=== PATIENT | male | born 1965 | race Caucasian/White ===

== ENCOUNTER 2025-01-25 12:13 | Outpatient (CLI) | payer BC, SELFPAY | END 2025-01-25 12:14 | disposition home or self-care (01) | LOC: AMB 01-29 18:32 | PROVIDERS: PCP Family Medicine; Visit Provider Emergency Medicine | DX: S09.93XA Unspecified injury of face, initial encounter (principal); W00.0XXA Fall on same level due to ice and snow, initial encounter; Y92.007 Garden or yard of unspecified non-institutional (private) residence as the place of occurrence of the external cause | CPT/HCPCS: A0998 ==

== ENCOUNTER 2025-01-25 14:01 | Emergency (ER) | payer BC, SELFPAY ==
[2025-01-25] VITALS (18 sets, daily range): BP systolic 123–139; BP diastolic 82–92; PULSE 77–92; RESP 16–20; TEMP 35.7; O2SAT 94–99; BMI 27.3
--- OUTSIDE RECORDS SUMMARY | 2025-01-25 14:03 | XMS_ITS | Clinical Summary ---
Author Organization [facility] Address [address] [place] [address] Care Team Providers Care Snuff Grinder Name Role Phone Eve Cervantes MD Primary Care Provider Swapnil Ruiz MD Unavailable Sarahi Shaver NP Unavailable [phone] Allergies Active Allergy Reactions Criticality Noted Date Comments Amoxicillin Hives 06/28/2008 Animal Dander Other - Describe In Comment Field 10/06/2016 itchy eyes, stuffy nose-Dog hair Cat hair- stuffy nose, itchy, swollen eyes Penicillins Hives 05/25/2012 Medications multivitamin (MVI) tablet Take 1 tablet by mouth once daily. 0 0 Active aspirin enteric coated 81 mg tabletIndications :HTN (hypertension) Take one twice weekly 0 4 Active triamcinolone (ARISTOCORT; KENALOG) 0.1 % cream 3 Active tacrolimus (PROTOPIC) 0.1 % ointment 4 Active icosapent ethyL (VASCEPA) 1 gram capsuleIndication s:Hypertriglyceri demia Take 2 g by mouth two times daily with meals. 400 Capsule 3 4 Active hydroxychloroquin e (PLAQUENIL) 200 mg tablet Take 1 Tablet (200 mg) by mouth two times daily. 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 Active furosemide (Lasix) 40 mg tabletIndications :Fluid retention Take 1 Tablet (40 mg) by mouth once daily in the morning. 90 Tablet 3 5 Active potassium chloride (KLOR-CON M20) 20 mEq extended-release tablet (part/cryst)Indic ations:Hypokalemi a Take 1 Tablet (20 mEq) by mouth two times daily with meals. 90 Tablet 1 5 Active carvediloL (COREG) 6.25 mg tabletIndications :Essential hypertension Take 2 Tablets (12.5 mg) by mouth two times daily with meals. 180 Tablet 1 5 Active amLODIPine (NORVASC) 5 mg tabletIndications :Hypertension Take 0.5 Tablets (2.5 mg) by mouth once daily. 90 Tablet 3 5 Active lisinopriL 20 mg tabletIndications :Essential hypertension Take 2 Tablets (40 mg) by mouth once daily. 100 Tablet 3 5 01/02/20 Discontinu ed(*Med complete/R egimen complete/L evel of care change) carvediloL (COREG) 6.25 mg tabletIndications :Essential hypertension Take 1 Tablet (6.25 mg) by mouth two times daily with meals. 180 Tablet 1 5 01/12/20 25 Discontinu ed(*Medica tion adjustment ) Active Problems Problem Noted Date Diagnosed Date Kimball's esophagus 08/15/2024 Overview (08/15/2024): EGD 07/2024 Kimball's, repeat EGD in 3 years Systemic lupus erythematosus , unspecified SLE type, unspecified organ involvement status 08/10/2024 Serrated polyp of colon 11/28/2020 Overview (11/28/2020): Colonoscopy 10/2020 SSA, repeat in 5 years with propofol Discoid lupus erythematosus 09/04/2016 Overview (12/01/2016): Per biopsy July 2016 Basal cell carcinoma 10/25/2012 Essential hypertension 09/06/2009 Hyperlipidemia 09/06/2009 Tobacco use disorder 09/06/2009 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 06/29/2008 Overview (11/28/2020): EGD 05/2008 Kimball's, repeat EGD in 2 years EGD 08/2010 Kimball's, repeat EGD in 3 years EGD 08/2013 Kimball's, repeat EGD in 3 years EGD 01/2017 Kimball's, repeat EGD in 3 years EGD 10/2020 Kimball's, repeat EGD in 3 years with propofol Resolved Problems Problem Noted Date Diagnosed Date Resolved Date Lupus 04/27/2022 04/16/2023 Discoid lupus erythematosus 09/04/2016 06/07/2018 Overview (09/04/2016): Per biopsy July 2016 Encounters Date Type Department Care Team Description 01/19/2025 Nurse Triage [facility] [id number] [place] [id number] Sarahi Shaver NP High Blood Pressure 01/19/2025 Telephone [facility] [id number] [place] [address] Sarahi Shaver NP Questions (Blood Pressure and medications) 01/17/[address] [address] Eve Cervantes MD Error-please disregard 01/11/2025 Telephone [facility] [id number] [place] [address] 387[address] Sarahi hSaver NP Results 01/11/2025 Orders Only [facility] [id number] [place] [address] 61069 Sarahi Shaver NP <No scans attached> 01/10/2025 Orders Only [facility] [address] [place] [address] Eve Cervantes MD <No scans attached> 01/09/2025 Orders Only [facility] [id number] [place] [phone] Sarahi Shaver NP <No scans attached> 01/09/2025 Orders Only [facility] [id number] [place] [address] 29760 Sarahi Shaver NP <No scans attached> 01/08/2025 2:00 PM ENGINEHOUSE BRAKEMAN Orders Only [facility] [address] [place] [address] Lab, [place] Lab 01/08/2025 Travel 01/01/2025 2:00 PM ENGINEHOUSE BRAKEMAN Office Visit [facility] [id number] [place] [address] Sarahi Shaver NP Follow Up 01/01/2025 Travel 12/26/2024 Telephone [facility] [id number] [place] [address] Sarahi Shaver NP Results 12/25/2024 2:15 PM CDT Orders Only [facility] [address] [place] [address] Lab, [place] Lab 12/25/2024 Travel 11/30/2024 Telephone [facility] [id number] [place] [phone] Sarahi Shaver NP Results (RETURNING CALL ) 11/28/2024 Telephone [facility] [id number] [place] [address] Sarahi Shaver NP Results 11/27/2024 2:00 PM CDT Orders Only [facility] [address] [place] [address] Lab, [place] Lab 11/27/2024 Travel 11/16/2024 Orders Only [facility] [address] [place] [address] Eve Cervantes MD <No scans attached> 11/14/2024 Telephone [facility] [address] [place] [address] Sarahi Shaver NP Results 11/14/2024 Orders Only [facility] [id number] [place] [address] Sarahi Shaver NP <No scans attached> 11/13/2024 2:15 PM CDT Orders Only [facility] [address] [place] [address] Lab, [place] Lab 11/13/2024 Travel 11/09/[address] [address] Sarahi Shaver NP Follow Up (CEC, Please direct call back to [facility] Nephrology block inspector Pool./Nephrology Post Visit (10/24/24) RN Follow-up Call ) 11/05/2024 Refill [facility] [id number] [place] [address] Sarahi Shaver NP Refill Request (Furosemide) from Last 3 Months Immunizations Immunization Administration Dates Next Due COVID-19 VACCINE SPIKEVAX (M ODERNA 50MCG/0.5ML) 12YO+ PFS 04/14/2024,03/05/2023 COVID-19 vaccine (Pfizer-Bio NTech 30mcg/0.3mL) PF, MDV 02/14/2021 INFLUENZA, IIV3 PF (AGE >= 6 MO) 04/14/2024 Influenza A (H1N1), Inactivated 12/25/2008 Influenza RIV4 (Age 18+ Years) PRESERV FREE 04/2016 Influenza Virus, Unspecified 12/15/2017,01/15/20 13,01/14/1999 Influenza, IIV3 (Age 6-35 mos) 11/23/2008 Influenza, IIV3 (Age >=3 years) 01/16/2008 Influenza, IIV4 03/05/2023,02/14/2021,12/18/2015 Influenza, IIV4 (=>6mos) MDV 12/20/2018 Influenza, Injectable, Mdck, Quadrivalent, W/preservative 12/15/2017 Pneumococcal Conj 20-valent (Prevnar 20) 023 Polio Virus, Unspecified 06/20/1980,07/16/1978 Tdap 02/14/2018,02/06/2008,04/20/2006 Family History Medical History Relation Name Comments Cancer Brother 1 lung CA 20 08 age 45 Other Brother 2 Other Brother 3 Other Father dementia Cancer Mother GI cancer - b 1 940 Relation Name Status Comments Brother 1 Brother 2 Alive Brother 3 Alive Father (Age 84) Dementia Mother Alive Social History Tobacco Use Types Packs/Day Years Used Date Smoking Tobacco: Every Day Cigarettes 0.5 30 Smokeless Tobacco: Never Tobacco Cessation:Ready to Q uit: Not Asked; Counseling Given: Not Answered Alcohol Use Standard Drinks/Week Comments Yes 2 (1 standard drink = 0.6 oz pur e alcohol) 2-4 PHQ-2 Answer Date Recorded PHQ-2 TOTAL SCORE 0 04/27/2022 Social Connections Answer Date Recorded Do you often feel lonely or isolated from those around you? 0 10/16/2024 Financial Resource Strain Answer Date R ecorded Difficulty of Paying Living Expenses 3 10/16/2024 Difficulty of Paying Living Expenses Not on file 10/16/2024 Food Insecurity Answer Date Recorded Do you worry your food will run out before you are able to buy more? 1 10/16/2024 Transportation Needs Answer Date Record ed Does lack of transportation keep you from medica l appointments? 1 10/16/2024 Does lack of transportation keep you from work, meetings or getting things that you need? 1 10/16/2024 Housing Stability Answer Date Recorded What is your housing situation today? 1 10/16/2024 Interpersonal Safety Answer Date Record ed Are you being hit, kicked, p ushed or yelled at (see row info)? No 09/30/2024 Interpersonal Safety Abuse 12 - 18 Not on file 09/30/2024 Interpersonal Safety Ambulatory Vulnerability No t on file 09/30/2024 Utilities Answer Date Recorded Do you have trouble paying f or utilities (for example, heat, electricity, water, phone)? 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 Not on file Not on file Obstetrics History Last Filed Vital Signs Vital Sign Reading Time Taken Comments Blood Pressure 133/82 01/01/2025 2:41 PM ENGINEHOUSE BRAKEMAN Pulse 99 01/01/2025 2:41 PM ENGINEHOUSE BRAKEMAN Temperature 36.8 C (98.3 F) 09/30/2024 3:25 PM CDT Respiratory Rate 20 09/30/2024 3:25 PM CDT Oxygen Saturation 98% 10/16/2024 2:04 PM CDT Inhaled Oxygen Concentration - - Weight 81.2 kg (179 lb) 01/01/2025 2:41 PM ENGINEHOUSE BRAKEMAN Height 167.6 cm (5' 6) 10/26/2023 9:14 AM CDT Body Mass Index 28.89 10/26/2023 9:14 AM CDT Plan of Treatment Upcoming Encounters Date Type Department Care Team (Late st Contact Info) Description 02/19/2025 1:45 PM ENGINEHOUSE BRAKEMAN Orders Only [facility] [address] [place] [address] Lab, [place] 02/26/2025 2:00 PM ENGINEHOUSE BRAKEMAN Office Visit [facility] [address] [place], [place] [id number] [place] [address] [place] [address] Health Maintenance Due Date Last Done Comments Hepatitis B series for 19+ ( 1 of 3 - 19+ 3-dose series) 1985 Zoster (shingles) series for age 50+ (1 of 2) 1985 RSV vaccine for adults or (1 - Risk 50-74 years 1-dose series) 2016 BMI (ht and wt on same day) for age 18+ 04/27/2023 04/27/2022, 11/13/2020, 11/28/2019, Additional history exists Depression screening for age 12+ 05/01/2023 04/30/2022, 04/27/2022, 05/07/2021, Additional history exists COVID-19 vaccine series ( season) 2024 04/14/2024, 03/05/2023, 02/14/2021, Additional history exists Influenza Vaccine (#1) 2024 , 03/05/2023, 02/14/2021, Additional history exists Colonoscopy through age 75 11/25/202511/25, 11/25/2020, 11/25/2020 Tetanus booster 02/15/2028 02/14/2018, 09/2007, 04/20/2006 Lipids for age 45-75 05/10/2029 05/10/2024, 02/25/2023, 04/27/2022, Additional history exists Pneumococcal series for age 50+ Completed Hepatitis C screening for ag e 18-79 Completed 04/12/2023 HIV for age 15-65 Completed 09/23/2023 Procedures Procedure Name Priority Date/Time Associated Diagnosis Comments CK TOTAL Add On 01/08/2025 1:43 PM ENGINEHOUSE BRAKEMAN Hematuria, unspecified type PROTEIN/CREAT RATIO,URINE Routine 01/08/2025 1:43 PM ENGINEHOUSE BRAKEMAN GARTH (acute kidney injury) Proteinuria, unspecified type URINALYSIS MICROSCOPIC Routine 01/08/2025 1:43 PM ENGINEHOUSE BRAKEMAN GARTH (acute kidney injury) Proteinuria, unspecified type URINALYSIS MACROSCOPIC - [facility] ONLY POC DIP ([facility]) Routine 01/08/2025 1:43 PM ENGINEHOUSE BRAKEMAN GARTH (acute kidney injury) Proteinuria, unspecified type BASIC METABOLIC PANEL Routine 01/08/2025 1:43 PM ENGINEHOUSE BRAKEMAN GARTH (acute kidney injury) Proteinuria, unspecified type CBC WITH AUTO DIFFERENTIAL Routine 12/25/2024 1:50 PM CDT Thrombocytopenia Anemia of unknown etiology CBC WITH AUTO DIFFERENTIAL Routine 12/25/2024 1:50 PM CDT Thrombocytopenia Anemia of unknown etiology ANTIHISTONE ANTIBODIES Routine 12/25/2024 1:50 PM CDT Proteinuria, unspecified type Discoid lupus erythematosus GALINDO CASCADE(GALINDO,IFA W/RFL AND REFL 11 AB CASCADE) ([facility]) Routine 12/25/2024 1:50 PM CDT Proteinuria, unspecified type Discoid lupus erythematosus C4 COMPLEMENT Routine 12/25/2024 1:50 PM CDT Proteinuria, unspecified type Discoid lupus erythematosus C3 COMPLEMENT Routine 12/25/2024 1:50 PM CDT Proteinuria, unspecified type Discoid lupus erythematosus BASIC METABOLIC PANEL Routine 12/25/2024 1:50 PM CDT Proteinuria, unspecified type Discoid lupus erythematosus URINALYSIS MICROSCOPIC Routine 11/27/2024 1:54 PM CDT Proteinuria, unspecified type UA W/ SEDIMENT EXAM REFLEXED PER CRITERIA Routine 11/27/2024 1:54 PM CDT Proteinuria, unspecified type URINE ALBUMIN TO CREATININE RATIO, RANDOM Routine 11/27/2024 1:54 PM CDT Proteinuria, unspecified type PROTEIN/CREAT RATIO,URINE Routine 11/27/2024 1:54 PM CDT Proteinuria, unspecified type CBC WITH AUTO DIFFERENTIAL Routine 11/13/2024 2:38 PM CDT Essential hypertension IRON PLUS IRON BINDING CAP Routine 11/13/2024 2:38 PM CDT Essential hypertension CBC WITH AUTO DIFFERENTIAL Routine 11/13/2024 2:38 PM CDT Essential hypertension PROTEIN/CREAT RATIO,URINE Routine 11/13/2024 2:03 PM CDT Essential hypertension LIPID PANEL Routine 05/10/2024 2:16 PM CDT Hypertriglyceridemia ANTI HIV 1/2 Today 09/23/2023 3:35 PM CDT Pancytopenia (HC) ANTI HCV Routine 04/12/2023 3:18 PM ENGINEHOUSE BRAKEMAN Elevated liver enzymes COLONOSCOPY SCREENING Routine 11/25/2020 8:04 AM CDT Encounter for screening colonoscopy from Last 3 Months or Most Recently Relevant to Health Maintenance Results * (ABNORMAL) POCT Urinalysis Dipstick Only [[id number]] (01/08/2025 1:43 PM ENGINEHOUSE BRAKEMAN) SPECIFIC GRAVITY > OR = 1.030 1.001 - 1.035 01/08/2025 1:55 PM ENGINEHOUSE BRAKEMAN [facility] Comment: Specific [place] values resulted are outside the analytical measurement range of this device. Recommend repeat/additional testing as clinically indicated. PROTEIN 2+(A) NEGATIVE 01/08/2025 1:55 PM ENGINEHOUSE BRAKEMAN [facility] GLUCOSE TRACE(A) NEGATIVE 01/08/2025 1:55 PM ENGINEHOUSE BRAKEMAN [facility] KETONES TRACE(A) NEGATIVE 01/08/2025 1:55 PM ENGINEHOUSE BRAKEMAN [facility] BILIRUBIN NEGATIVE NEGATIVE 01/08/2025 1:55 PM ENGINEHOUSE BRAKEMAN [facility] OCCULT BLOOD 2+(A) NEGATIVE 01/08/2025 1:55 PM ENGINEHOUSE BRAKEMAN [facility] NITRITE NEGATIVE NEGATIVE 01/08/2025 1:55 PM ENGINEHOUSE BRAKEMAN [facility] PH 5.5 5.0 - 8.0 01/08/2025 1:55 PM ENGINEHOUSE BRAKEMAN [facility] LEUKOCYTE ESTERASE NEGATIVE NEGATIVE 01/08/2025 1:55 PM ENGINEHOUSE BRAKEMAN [facility] Urine URINE SPECIMEN / Unknown Non-Blood / Unknown 01/08/2025 1:43 PM ENGINEHOUSE BRAKEMAN 01/08/2025 1:43 PM ENGINEHOUSE BRAKEMAN Sarahi Shaver NP URINE Final Resu lt [facility] [address] [place] [address], [place] [phone] [facility] [address] [place] [address], [place] [phone] * (ABNORMAL) URINALYSIS MICROSCOPIC [[id number]] - routine (01/08/2025 1:43 PM ENGINEHOUSE BRAKEMAN) Only the most recent of2 resultswithin the time period is included. Pathologist [facility] RBC 0-2 0-2, None Seen /HPF 01/09/2025 3:40 AM ENGINEHOUSE BRAKEMAN [facility] WBC 0-2 0-2, 3-5, None Seen /HPF 01/09/2025 3:40 AM ENGINEHOUSE BRAKEMAN [facility] BACTERIA None Seen None Seen, Rare, Few Bacteria/ HPF 01/09/2025 3:40 AM ENGINEHOUSE BRAKEMAN [facility] EPITHELIAL CELLS None Seen None Seen, Few Epi/HPF 01/09/2025 3:40 AM ENGINEHOUSE BRAKEMAN [facility] HYALINE CASTS 0-2 0-2, 3-5 /LPF 01/09/2025 3:40 AM ENGINEHOUSE BRAKEMAN [facility] AMORPHOUS Present(A) (none) 01/09/2025 3:40 AM ENGINEHOUSE BRAKEMAN [facility] Urine URINE SPECIMEN / Unknown Non-Blood / Unknown 01/08/2025 1:43 PM ENGINEHOUSE BRAKEMAN 01/08/2025 1:43 PM ENGINEHOUSE BRAKEMAN us Sarahi Shaver PATENT CHEMIST URINE Final Resu lt [facility] [address] [place] [address], * (ABNORMAL) PROTEIN/CREAT RATIO,URINE (01/08/2025 1:43 PM ENGINEHOUSE BRAKEMAN) Only the most recent of3 resultswithin the time period is included. Pathologist [facility] PROTEIN QUANT,RAND URINE 93(H) 1 - 14 mg/dL 01/08/2025 11:34 PM ENGINEHOUSE BRAKEMAN [facility] CREAT,RANDOM URINE 244.0 39.0 - 259.0 mg/dL 01/08/2025 11:34 PM ENGINEHOUSE BRAKEMAN [facility] PROT/CREAT RATIO,UR 0.4(H) <0.2 01/08/2025 11:34 PM ENGINEHOUSE BRAKEMAN [facility] Urine URINE SPECIMEN / Unknown Non-Blood / Unknown 01/08/2025 1:43 PM ENGINEHOUSE BRAKEMAN 01/08/2025 1:43 PM ENGINEHOUSE BRAKEMAN Sarahi Shaver PATENT CHEMIST URINE Final Resu lt [facility] [address] [place] [address], * (ABNORMAL) CK TOTAL (01/08/2025 1:43 PM ENGINEHOUSE BRAKEMAN) CREATINE KINASE, TOTAL 374(H) 23 - 325 U/L 01/10/2025 12:48 AM ENGINEHOUSE BRAKEMAN [facility] Blood BLOOD SPECIMEN / Unknown [facility] Collect / Unknown 01/08/2025 1:43 PM ENGINEHOUSE BRAKEMAN 01/08/2025 1:43 PM ENGINEHOUSE BRAKEMAN Sarahi Shaver PATENT CHEMIST CHEMISTRY Final Resu lt [facility] [address] [address], [place] [phone] * (ABNORMAL) BASIC METABOLIC PANEL (01/08/2025 1:43 PM ENGINEHOUSE BRAKEMAN) Only the most recent of2 resultswithin the time period is included. SODIUM 138 135 - 146 mmol/L 01/09/2025 3:53 AM ENGINEHOUSE BRAKEMAN [facility] POTASSIUM 3.0(L) 3.5 - 5.3 mmol/L 01/09/2025 3:53 AM ENGINEHOUSE BRAKEMAN [facility] CARBON DIOXIDE 31 20 - 32 mmol/L 01/09/2025 3:53 AM ENGINEHOUSE BRAKEMAN [facility] GLUCOSE 159(H) 65 - 99 mg/dL 01/09/2025 3:53 AM ENGINEHOUSE BRAKEMAN [facility] Comment: Fasting reference interval For someone without known diabetes, a glucose value >125 mg/dL indicates that they may have diabetes and this should be confirmed with a follow-up test. CALCIUM 8.4(L) 8.6 - 10.3 mg/dL 01/09/2025 3:53 AM ENGINEHOUSE BRAKEMAN [facility] CREATININE 1.23 0.70 - 1.30 mg/dL 01/09/2025 3:53 AM ENGINEHOUSE BRAKEMAN [facility] BUN/CREATININE RATIO 22 6 - 22 (calc) 01/09/2025 3:53 AM ENGINEHOUSE BRAKEMAN [facility] EGFR 68 > OR = 60 mL/min/1.7 3m2 01/09/2025 3:53 AM ENGINEHOUSE BRAKEMAN [facility] UREA NITROGEN (BUN) 27(H) 7 - 25 mg/dL 01/09/2025 3:53 AM ENGINEHOUSE BRAKEMAN [facility] ELECTROLYTE BALANCE 12 7 - 17 mmol/L (calc) 01/09/2025 3:53 AM ENGINEHOUSE BRAKEMAN [facility] CHLORIDE 95(L) 98 - 110 mmol/L 01/09/2025 3:53 AM ENGINEHOUSE BRAKEMAN [facility] Blood BLOOD SPECIMEN / Unknown [facility] Collect / Unknown 01/08/2025 1:43 PM ENGINEHOUSE BRAKEMAN 01/08/2025 1:43 PM ENGINEHOUSE BRAKEMAN Sarahi Shaver PATENT CHEMIST CHEMISTRY Final Resu lt [facility] [address] [place] [address], * GALINDO CASCADE(GALINDO,IFA W/RFL AND REFL 11 AB CASCADE) ([facility]) (12/25/2024 1:50 PM CDT) GALINDO SCREEN, IFA NEGATIVE NEGATIVE 5:29 PM CDT [facility] Comment: GALINDO IFA is a first line screen for detecting the presence of up to approximately 150 autoantibodies in various autoimmune diseases. A negative GALINDO IFA result suggests an GALINDO-associated autoimmune disease is not present at this time, and does not reflex further. If there is high clinical suspicion for Sjogren's syndrome, testing for anti-SS-A/Ro antibody should be considered. Anti-Holly-1 antibody should be considered for clinically suspected inflammatory myopathies. AC-0: Negative International Consensus on GALINDO Patterns (https://doi.org/10.1515/ajhx-9354-3070) For additional information, please refer to http://education.ViRTUAL INTERACTiVE.Cashflowtuna.com/faq/NHX677 (This link is being provided for informational/ educational purposes only.) Blood BLOOD SPECIMEN / Unknown [facility] Collect / Unknown 12/25/2024 1:50 PM CDT 12/25/2024 1:50 PM CDT Sarahi Shaver PATENT CHEMIST SEND OUTS Final Resu lt Performing Organization Address [facility] de Phone Number [facility] [address] [address], * ANTIHISTONE ANTIBODIES (12/25/2024 1:50 PM CDT) [facility] HISTONE ANTIBODIES <1.0 U 12/27/2024 5:29 PM CDT [facility] Comment: Value Explanation of Results ------ <1.0 Negative 1.0-1.5 Weak Positive 1.6-2.5 Moderate Positive >2.5 Strong Positive Blood BLOOD SPECIMEN / Unknown [facility] Collect / Unknown 12/25/2024 1:50 PM CDT 12/25/2024 1:50 PM CDT us Sarahi Shaver PATENT CHEMIST SEND OUTS Final Resu lt Performing Organization Address [facility] de Phone Number [facility] [address] [address], * (ABNORMAL) CBC WITH AUTO DIFFERENTIAL (12/25/2024 1:50 PM CDT) Only the most recent of2 resultswithin the time period is included. [facility] WHITE BLOOD CELL COUNT 6.0 3.8 - 10.8 Thousand/ uL 12/26/2024 4:18 AM CDT [facility] RED BLOOD CELL COUNT 3.28(L) 4.20 - 5.80 Million/u L 12/26/2024 4:18 AM CDT [facility] HEMOGLOBIN 12.1(L) 13.2 - 17.1 g/dL 12/26/2024 4:18 AM CDT [facility] HEMATOCRIT 34.1(L) 38.5 - 50.0 % 12/26/2024 4:18 AM CDT [facility] MCV 104.0(H) 80.0 - 100.0 fL 12/26/2024 4:18 AM CDT [facility] MCH 36.9(H) 27.0 - 33.0 pg 12/26/2024 4:18 AM CDT [facility] MCHC 35.5 32.0 - 36.0 g/dL 12/26/2024 4:18 AM CDT [facility] Comment: For adults, a slight decrease in the calculated MCHC value (in the range of 30 to 32 g/dL) is most likely not clinically significant; however, it should be interpreted with caution in correlation with other red cell parameters and the patient's clinical condition. RDW 16.1(H) 11.0 - 15.0 % 12/26/2024 4:18 AM CDT [facility] PLATELET COUNT 97(L) 140 - 400 Thousand/ uL 12/26/2024 4:18 AM CDT [facility] MPV 10.8 7.5 - 12.5 fL 12/26/2024 4:18 AM CDT [facility] NEUTROPHILS 74.8 % 12/26/2024 4:18 AM CDT [facility] LYMPHOCYTES 15.7 % 12/26/2024 4:18 AM CDT [facility] MONOCYTES 7.5 % 12/26/2024 4:18 AM CDT [facility] EOSINOPHILS 1.0 % 12/26/2024 4:18 AM CDT [facility] BASOPHILS 1.0 % 12/26/2024 4:18 AM CDT [facility] ABSOLUTE NEUTROPHILS 4488 1500 - 7800 cells/uL 12/26/2024 4:18 AM CDT [facility] ABSOLUTE LYMPHOCYTES 942 850 - 3900 cells/uL 12/26/2024 4:18 AM CDT [facility] ABSOLUTE MONOCYTES 450 200 - 950 cells/uL 12/26/2024 4:18 AM CDT [facility] ABSOLUTE EOSINOPHILS 60 15 - 500 cells/uL 12/26/2024 4:18 AM CDT [facility] ABSOLUTE BASOPHILS 60 0 - 200 cells/uL 12/26/2024 4:18 AM CDT [facility] Blood BLOOD SPECIMEN / Unknown [facility] Collect / Unknown 12/25/2024 1:50 PM CDT 12/25/2024 1:50 PM CDT Eve Cervantes MD HEMATOLOGY Final Resul t Performing Organization Address [facility]/ZIP Co de Phone Number [facility] [address] [address], [place] [phone] * C3 COMPLEMENT (12/25/2024 1:50 PM CDT) COMPLEMENT COMPONENT C3C 127 82 - 185 mg/dL 12/26/2024 4:18 PM CDT [facility] Blood BLOOD SPECIMEN / Unknown [facility] Collect / Unknown 12/25/2024 1:50 PM CDT 12/25/2024 1:50 PM CDT Sarahi Shaver PATENT CHEMIST CHEMISTRY Final Resu lt Performing Organization Address [facility] CENTER Co de Phone Number [facility] [address] [address], [place] [phone] * C4 COMPLEMENT (12/25/2024 1:50 PM CDT) COMPLEMENT COMPONENT C4C 28 15 - 53 mg/dL 12/26/2024 4:18 PM CDT [facility] Blood BLOOD SPECIMEN / Unknown [facility] / Unknown 12/25/2024 1:50 PM CDT 12/25/2024 1:50 PM CDT Sarahi Shaver PATENT CHEMIST CHEMISTRY Final Resu lt Performing Organization Address [facility]/ZIP Co de Phone Number [facility] [address] [address], [place] [phone] * (ABNORMAL) URINE ALBUMIN TO CREATININE RATIO, RANDOM (11/27/2024 1:54 PM CDT) ALB RAND URINE 395.0 mg/L 11/27/2024 11:50 PM CDT [facility] CREATININE,URIN E 1.70 g/L 11/27/2024 11:50 PM CDT [facility] ALBUMIN TO CREATININE RATIO,RAND UR 232.4(H) <30.0 mg/g creat 11/27/2024 11:50 PM CDT [facility] Urine URINE SPECIMEN / Unknown Non-Blood / Unknown 11/27/2024 1:54 PM CDT 11/27/2024 1:54 PM CDT [facility] - 11/27/2024 11:50 PM CDT If Albumin to Creatinine Ratio is elevated, consider the following: Elevations seen with incipient nephropathy associated with diabetes mellitus or hypertension. Stress, exercise,hematuria, and urinary tract infection may also produce elevated results. If clinically indicated, confirm with 24 Hour Albumin to Creatinine Ratio. us Sarahi Shaver PATENT CHEMIST URINE Final Resu lt [facility] [address] [place] [address], [place] * (ABNORMAL) UA W/ SEDIMENT EXAM REFLEXED PER CRITERIA (11/27/2024 1:54 PM CDT) COLOR Yellow Yellow Color 11/28/2024 12:26 AM CDT [facility] CLARITY Turbid(A) Clear Clarity 11/28/2024 12:26 AM CDT [facility] SPECIFIC GRAVITY,URINE 1.025 1.010, 1.015, 1.020, 1.025 11/28/2024 12:26 AM CDT [facility] PH,URINE 6.0 6.0, 7.0, 8.0, 5.5, 6.5, 7.5, 8.5 11/28/2024 12:26 AM CDT [facility] UROBILINOGEN, QUALITATIVE Normal Normal EU/dl 11/28/2024 12:26 AM CDT [facility] PROTEIN, URINE >=300(A) Negative mg/dL 11/28/2024 12:26 AM CDT [facility] GLUCOSE, URINE Negative Negative mg/dL 11/28/2024 12:26 AM CDT [facility] KETONES,URINE Negative Negative mg/dL 11/28/2024 12:26 AM CDT [facility] BILIRUBIN,URI NE Negative Negative 11/28/2024 12:26 AM CDT [facility] OCCULT BLOOD,URINE Moderate(A) Negative 11/28/2024 12:26 AM CDT [facility]- [facility] NITRITE Negative Negative 11/28/2024 12:26 AM CDT [facility] LEUKOCYTE ESTERASE Negative Negative 11/28/2024 12:26 AM CDT [facility] Urine URINE SPECIMEN / Unknown Non-Blood / Unknown 11/27/2024 1:54 PM CDT 11/27/2024 1:54 PM CDT us Sarahi Shaver PATENT CHEMIST URINE Final Resu lt [facility] [address] [place] [id number], [place] * IRON PLUS IRON BINDING CAP (11/13/2024 2:38 PM CDT) [facility] IRON, TOTAL 135 50 - 180 mcg/dL 11/14/2024 6:04 AM CDT [facility] IRON BINDING CAPACITY 353 250 - 425 mcg/dL (calc) 11/14/2024 6:04 AM CDT [facility] % SATURATION 38 20 - 48 % (calc) 11/14/2024 6:04 AM CDT [facility] Blood BLOOD SPECIMEN / Unknown [facility] / Unknown 11/13/2024 2:38 PM CDT 11/13/2024 2:38 PM CDT us Eve Cervantes MD CHEMISTRY Final Resul t [facility] [address] [address], [place] [phone] * (ABNORMAL) LIPID PANEL (05/10/2024 2:16 PM CDT) Pathologist [facility] CHOLESTEROL, TOTAL 150 <200 mg/dL [facility] HDL CHOLESTEROL 78 > OR = 40 mg/dL [facility] TRIGLYCERIDES 165(H) <150 mg/dL [facility] LDL-CHOLESTEROL 48 mg/dL (calc) [facility] Comment: Reference range: <100 Desirable range <100 mg/dL for primary prevention; <70 mg/dL for patients with CHD or diabetic patients with > or = 2 CHD risk factors. LDL-C is now calculated using the Keo calculation, which is a validated novel method providing better accuracy than the Friedewald equation in the estimation of LDL-C. Hola SS et al. RAJAN. 2013;310(19): 1679-9419 (http://education.[facility]/faq/NSY403) CHOL/HDLC RATIO 1.9 <5.0 (calc) [facility] NON HDL CHOLESTEROL 72 <130 mg/dL (calc) [facility] Comment: For patients with diabetes plus 1 major ASCVD risk factor, treating to a non-HDL-C goal of <100 mg/dL (LDL-C of <70 mg/dL) is considered a therapeutic option. Blood BLOOD SPECIMEN / Unknown 05/10/2024 2:16 PM CDT 05/10/2024 2:17 PM CDT us Eve Cervantes MD CHEMISTRY Final Resul t [facility] [address] [place] [address], [facility] [address] [place] [address] * ANTI HIV 1/2 (09/23/2023 3:35 PM CDT) Pathologist [facility] HIV-1/HIV-2 SCREEN Non-Reacti ve Non-Reacti ve 09/24/2023 1:46 PM CDT [facility] Comment:HIV-1 p24 and HIV-1/ HIV-2 Ab Not Detected. Blood BLOOD SPECIMEN / Unknown Venipuncture / Unknown 09/23/2023 3:35 PM CDT 09/23/2023 3:38 PM CDT us Jo Ann Canales MD SEND OUTS Final Resu lt Performing Organization Address [facility] Co de Phone Number [facility] [address] [place] [phone], [place] * ANTI HCV (04/12/2023 3:18 PM ENGINEHOUSE BRAKEMAN) HEPATITIS C ANTIBODY Non-Reacti ve Non-React sabrina 04/13/2023 4:00 PM ENGINEHOUSE BRAKEMAN [facility] Comment:Please note, per www .CDC.gov: If a patient is known to be at high risk of HCV infection, or is symptomatic, and the physician's suspicion of HCV infection is high, HCV RNA testing is often employed and is of diagnostic value, even after an initial negative anti-HCV test result. Blood BLOOD SPECIMEN / Unknown Venipuncture / Unknown 04/12/2023 3:18 PM ENGINEHOUSE BRAKEMAN 04/12/2023 3:19 PM ENGINEHOUSE BRAKEMAN us Eve Cervantes MD SEND OUTS Final Resul t Performing Organization Address [facility] Co de Phone Number [facility] [address] [place] [phone], [place] * SCAN-COLONOSCOPY (11/25/2020 12:00 AM CDT) us Scanner OTHER Final Result from Last 3 Months or Most Recently Relevant to Health Maintenance Insurance BLUE CROSS OF NON-UT-ITS [address] [facility] [place] [id number] [address] [address] [place] [address] [facility] Advance Directives * Full Code (Latest Code Status on File) Date Activated Date Inactivated Comments 10/26/2023 9:44 AM 10/26/2023 1:06 PM Question Answer Comments Code Status Discussion: Not Discussed Care Teams Snuff Grinder Relationship Specialty Start Date End Date Eve Cervantes MD [address] [place] [address] PCP - General Family Practice 04/27/22 [place] [address] [place] [address] Nephrology Nephrology 10/05/23 [place] [address] [place] [address] Nephrology Nephrology 07/25/24
--- NOTE | 2025-01-25 14:14 | XR_ITS ---
Patient: VIKTORIYA BRUCE Facility:?[facility] Patient ID:?[id number] Site Patient ID:?[id number]. Site :?[id number] Study:?XRay-Shoulder Right CODE TRAUMA-01/25/2025 2:31:22 PM Ordering Physician:Renetta Dove Final Report: INDICATION: Fall, found down TECHNIQUE: X-ray shoulder right three views COMPARISON: None. FINDINGS: Osseous structures: There is no acute fracture dislocation. The joint spaces are maintained. There is a small radiopaque object along the midshaft of the patient`s right humerus. This may be postsurgical in nature. There are additional radiopaque prognosis, which all appear to be external to the patient on the skin surface. Soft tissues: No asymmetric soft tissue swelling. IMPRESSION: No acute fracture or dislocation. There is a small radiopaque object along the midshaft of the patient`s right humerus, which may be postsurgical in nature. Correlation with the patient`s prior surgical history is recommended. Additionally, there are multiple radiopaque buttons overlying the patient`s right shoulder, which are likely external to the patient on the skin surface. Correlation with physical examination is recommended. Dictated by Blayne Pearce MD @ 01/25/2025 2:40:47 PM (Electronic Signature)
--- NOTE | 2025-01-25 14:15 | CRLHL7_ITS ---
For Patients: As a result of the Century Cures Act, medical imaging exams and procedure reports are released immediately into your electronic medical record. You may view this report before your referring provider. If you have questions, please contact your health care provider. Indication: Fall. Technique: Noncontrast CT images of the brain. Comparison: None. Findings: Mild diffuse cerebral volume loss. No mass effect or midline shift. Hoover-white differentiation is maintained. No acute intracranial hemorrhage or pathologic extra-axial fluid collection. Intracranial atherosclerotic calcifications. Globes are symmetric. Calvarium is intact. Minimal paranasal sinus mucosal thickening. The mastoid air cells are clear. Impression: No acute intracranial hemorrhage or mass effect. Please note that all CT scans at this facility use dose modulation, iterative reconstruction, and/or weight-based dosing when appropriate to reduce radiation dose to as low as reasonably achievable. Dictated by Andrea Fabian MD @ 01/25/2025 2:37:48 PM (Electronically Signed)
--- NOTE | 2025-01-25 14:15 | CRLHL7_ITS ---
For Patients: As a result of the Century Cures Act, medical imaging exams and procedure reports are released immediately into your electronic medical record. You may view this report before your referring provider. If you have questions, please contact your health care provider. Indication: Trauma. Technique: Noncontrast CT images of the cervical spine. Comparison: None. Findings: Reversal of the cervical lordosis. Mild leftward cervical curvature. No acute fracture or traumatic subluxation. Grade 1 anterolisthesis of C2 on C3 and C3 on C4. Advanced multilevel disc height loss. Multilevel posterior disc osteophyte complexes contributing up to mild to moderate spinal canal narrowing at C5-6. Multilevel uncinate spurring and facet arthropathy contributing up to moderate neural foraminal stenosis left C6-7. Impression: 1. No acute fracture or traumatic subluxation. 2. Multilevel cervical spondylosis. Please note that all CT scans at this facility use dose modulation, iterative reconstruction, and/or weight-based dosing when appropriate to reduce radiation dose to as low as reasonably achievable. Dictated by Andrea Fabian MD @ 01/25/2025 2:40:43 PM (Electronically Signed)
--- NOTE | 2025-01-25 14:18 | ED.GENADULT ---
HPI - General Adult General Chief complaint: Head Injury/Pain Stated complaint: Head lac - fall Time Seen by Provider: 01/25/25 14:14 Source: patient Mode of arrival: ambulatory Limitations: no limitations History of Present Illness HPI narrative: 59-year-old male presenting today after falling at home. Patient states that he slipped on the ice, fell backwards hitting his head on the concrete. He believes he lost consciousness, unsure how long he was unconscious for. He denies any pain of his extremities from the hold, but ?feels cold all over?. He complains of pain in the back of the head and right shoulder pain. Patient states that yesterday he actually tripped while he was at home falling onto his right side sustaining an injury to the right shoulder. He denies any neck pain. He denies confusion. Takes a daily aspirin, amlodipine, carvedilol, fexofenadine, Lasix, hydroxychloroquine, lisinopril, methotrexate, potassium chloride, rosuvastatin. Patient has a history of lupus, hypertension, hyperlipidemia, allergies, GERD. Smokes tobacco daily. Drinks 2-3 times per week. Related Data Home Medications ?Medication ?Instructions ?Recorded ?Confirmed amlodipine 5 mg tablet 2.5 mg PO DAILY 01/25/25 01/25/25 aspirin 81 mg tablet,delayed 81 mg PO DAILY 01/25/25 01/25/25 release (Adult Aspirin Regimen) carvedilol 6.25 mg tablet PO 01/25/25 fexofenadine 180 mg tablet 180 mg PO DAILY 01/25/25 01/25/25 folic acid 1 mg tablet PO 01/25/25 furosemide 40 mg tablet 40 mg PO DAILY 01/25/25 01/25/25 hydroxychloroquine 200 mg tablet 200 mg PO BID 01/25/25 01/25/25 icosapent ethyl 1 gram capsule 2 g PO BID 01/25/25 01/25/25 lisinopril 20 mg tablet 20 mg PO BID 01/25/25 01/25/25 methotrexate sodium 2.5 mg tablet 10 mg PO 01/25/25 potassium chloride 20 mEq 20 meq PO BID 01/25/25 01/25/25 tablet,extended release(part/cryst) rosuvastatin 40 mg tablet 40 mg PO DAILY 01/25/25 01/25/25 Allergies Allergy/AdvReac Type Severity Reaction Status Date / Time animal dander Allergy Intermediate Verified 01/25/25 15:13 Review of Systems Status of ROS: Reports: 10 or more systems reviewed and unremarkable except as noted in History and below [facility] Social History Smoking Status: Current every day smoker How often do you have a drink containing alcohol: 4 or more times a week AUDIT-C Alcohol total score: 4 Exam Narrative: Exam Narrative: Well-nourished well-developed patient, looks older than stated age, in no acute distress. Alert and oriented x3. Answers questions appropriately. Mood and affect are appropriate. Thoughts are goal oriented and rational. No tangential or magical thinking noted. Patient speaks in full sentences without needing to catch his breath. GCS is 15. Patient is speaking and breathing without difficulty. Speech is not slurred or pressured. Patient smells strongly of alcohol and tobacco. HEENT: Normocephalic. Occipital area of the scalp has a large abrasion, not currently bleeding. No lacerations. No crepitus. Pupils are equally round reactive to light. Extraocular muscles are intact. Conjunctivae are moist without any icterus noted. Moist mucous membranes. Posterior pharynx is normal. No trauma noted to the inside of the mouth. Neck is soft without any lymphadenopathy. Spider veins present across the cheeks and nose. Cardiovascular: Heart is regular rate and rhythm S1 and S2 are present without any murmurs. Lungs: Clear to auscultation bilaterally no wheezes rhonchi or rales are appreciated. Patient takes deep breaths without any discomfort. Patient has no tenderness to palpation of the anterior, lateral posterior chest wall. Abdomen: Soft and nontender nondistended with normal bowel sounds. No guarding or rebound. No masses or organomegaly appreciated. Patient has old bruising to both flank. Area is not tender. Extremities: Bilateral lower extremities are without edema. Normal DP and PT pulses. Fingers are purple. Feet have normal appearance. Shoulder has normal appearance-no bruising or swelling. He has tenderness over the AC joint. No tenderness over the clavicle itself. Range of motion is decreased secondary to discomfort. Skin: Fingertips are dusky. Back: Normal appearance. Patient has no tenderness to palpation at the cervical, thoracic or lumbar spine. Patient has full range of motion at the neck with flexion, extension, side way bending and rotation without pain. Const: Vital Signs, click to edit/add: Vital Signs - 24 hr 01/25/25 14:06 01/25/25 14:31 01/25/25 14:32 Temperature 96.3 F L Pulse Rate 78 77 Pulse Rate [Pulse Oximeter] 78 Respiratory Rate 20 18 Blood Pressure 132/90 H Blood Pressure [Ri ght Upper Arm] 139/87 Pulse Oximetry 99 98 99 Oxygen Delivery Me thod Room Air 01/25/25 14:43 01/25/25 14:45 01/25/25 14:52 Temperature Pulse Rate 80 82 82 Pulse Rate [Pulse Oximeter] Respiratory Rate 18 18 Blood Pressure 139/92 H 133/82 Blood Pressure [Ri ght Upper Arm] Pulse Oximetry 99 99 95 Oxygen Delivery Me thod 01/25/25 14:53 01/25/25 15:00 01/25/25 15:02 Temperature Pulse Rate 83 81 84 Pulse Rate [Pulse Oximeter] Respiratory Rate 18 Blood Pressure 128/84 Blood Pressure [Ri ght Upper Arm] Pulse Oximetry 94 96 98 Oxygen Delivery Me thod 01/25/25 15:12 01/25/25 15:15 01/25/25 15:21 Temperature Pulse Rate 85 81 82 Pulse Rate [Pulse Oximeter] Respiratory Rate 16 18 Blood Pressure 132/86 126/83 Blood Pressure [Ri ght Upper Arm] Pulse Oximetry 98 99 97 Oxygen Delivery Me thod Course Course ED Course: After brief rewarming with just warm blankets, finger coloration went back to normal. Despite being clinically sober, I do believe this patient is intoxicated. Therefore I cannot clear his cervical spine at this time. Head and neck CT were ordered. Head and neck CT unremarkable. Normal lactate. CBC shows mild anemia with a hemoglobin of 11.3 and an elevated MCV at 112. High sensitivity troponin is normal at 3.2. AST elevated, alkaline phosphatase elevated. Blood alcohol level elevated at 0.25. Shoulder x-ray did not show any fractures. Had a long discussion with the patient about his blood work and my concerns about his alcohol use. Patient states that he does not drink that much and he can not understand how his blood work is abnormal today. He also does not understand how his blood alcohol level is so high today as he only had ?a couple drinks this morning. I discussed with the patient that he did not in explain anything to me, I was simply relying information him about when I am seeing in his blood work and his physical examination today. I recommended very seriously that he consider cutting down on his alcohol use. Vital Signs Vital signs: Initial Vital Signs Temperature 96.3 F L 01/25/25 14:06 Temperature Source Temporal Artery Scan 01/25/25 14:06 Pulse Rate 78 01/25/25 14:06 Respiratory Rate 20 01/25/25 14:06 Blood Pressure 139/87 01/25/25 14:06 Blood Pressure Mean 104 01/25/25 14:06 Blood Pressure Position Sitting 01/25/25 14:06 Pulse Oximetry 99 01/25/25 14:06 Oxygen Delivery Method Room Air 01/25/25 14:06 Vital Signs Temperature 96.3 F L 01/25/25 14:06 Pulse Rate 78 01/25/25 14:06 Respiratory Rate 20 01/25/25 14:06 Blood Pressure 139/87 01/25/25 14:06 Pulse Oximetry 99 01/25/25 14:06 Oxygen Delivery Method Room Air 01/25/25 14:06 Temperature 96.3 F L 01/25/25 14:06 Pulse Rate 82 01/25/25 15:21 Respiratory Rate 18 01/25/25 15:21 Blood Pressure 126/83 01/25/25 15:21 Pulse Oximetry 97 01/25/25 15:21 Oxygen Delivery Method Room Air 01/25/25 14:06 Medical Decision Making MDM Narrative Medical decision making narrative: 59-year-old male presenting after a fall with a closed head injury, injury to her shoulder he sustained yesterday, acute alcohol intoxication. Physical evidence and evidence on his blood work of chronic alcohol use disorder. Everything was discussed with the patient today - I recommend him following up with an orthopedic surgeon as I am concerned about rotator cuff injury. We discussed icing and heat for discomfort. We discussed reasons to return to the ER including altered mental status, vomiting. We discussed alcohol cessation. Patient will be discharged home to the care of his brother today. Lab Data Lab results reviewed: Yes I reviewed the patient's lab results Labs: Lab Results 01/25/25 01/25/25 Range/Units 14:35 14:40 WBC 7.59 (4.50-11.00) K/uL RBC 2.96 L (4.30-5.90) m/uL Hgb 11.3 L (13.5-17.5) gm/dL Hct 33.2 L (37.0-53.0) % MCV 112 H (80-100) fL MCH 38 H (26-34) pg MCHC 34 (32-36) gm/dL RDW Coeff of Cathy 19.2 H (11.5-15.5) % Plt Count 154 (140-440) K/uL Neut % (Auto) 76.6 H (42.0-72.0) % Lymph % (Auto) 12.0 L (20-44) % Mccone % (Auto) 8.7 (0.0-11.0) % Eos % (Auto) 0.9 (0.0-7.0) % Baso % (Auto) 0.4 (0.0-3.0) % Neut # (Auto) 5.80 (1.7-7.0) K/uL Lymph # (Auto) 0.90 (0.90-2.90) K/uL Mccone # (Auto) 0.70 (0.00-0.90) K/UL Eos # (Auto) 0.07 (0.00-0.50) K/uL Baso # (Auto) 0.03 (0.00-0.30) K/uL Abs Immat Gran (auto) 0.11 (0.00-0.30) K/uL Imm/Tot Granulo (auto) 1.4 % Sodium 139 (135-149) mmol/L Potassium 3.8 (3.6-5.1) mmol/L Chloride 99 (96-114) mmol/L Carbon Dioxide 27 (20-32) mmol/L Anion Gap 13 (7-15) mEq/L BUN 19 (7-30) mg/dL Creatinine 0.9 (0.5-1.5) mg/dL Estimated Creat Clear 89.47 Estimated GFR 99 ml/min Glucose 119 H (60-115) mg/dL Lactate 1.5 (0.5-1.9) mmol/L Calcium 8.9 (8.4-10.6) mg/dL Total Bilirubin 0.8 (0.1-1.5) mg/dL Direct Bilirubin 0.4 (0.0-0.5) mg/dL AST 71 H (12-35) U/L ALT 47 (4-50) U/L Alkaline Phosphatase 138 (40-150) U/L Total Creatine Kinase 299 H (54-186) U/L POC Troponin I High Sensi 3.2 (2.9-28.0) pg/mL Total Protein 7.9 (6.0-8.3) g/dL Albumin 4.6 (3.3-5.0) g/dL Salicylates < 1.0 L (1.0-10) mg/dL Acetaminophen < 10.0 (10.0-30.0) ug/mL Ethyl Alcohol 0.25 H (0.01-0.03) % Imaging Data CT scan - head: Attestation: I have reviewed the pertinent imaging results. Radiologist's impression: Technique: Noncontrast CT images of the brain. Comparison: None. Findings: Mild diffuse cerebral volume loss. No mass effect or midline shift. Hoover-white differentiation is maintained. No acute intracranial hemorrhage or pathologic extra-axial fluid collection. Intracranial atherosclerotic calcifications. Globes are symmetric. Calvarium is intact. Minimal paranasal sinus mucosal thickening. The mastoid air cells are clear. Impression: No acute intracranial hemorrhage or mass effect. CT cervical spine: Attestation: I have reviewed the pertinent imaging results. Radiologist's impression: Technique: Noncontrast CT images of the cervical spine. Comparison: None. Findings: Reversal of the cervical lordosis. Mild leftward cervical curvature. No acute fracture or traumatic subluxation. Grade 1 anterolisthesis of C2 on C3 and C3 on C4. Advanced multilevel disc height loss. Multilevel posterior disc osteophyte complexes contributing up to mild to moderate spinal canal narrowing at C5-6. Multilevel uncinate spurring and facet arthropathy contributing up to moderate neural foraminal stenosis left C6-7. Impression: 1. No acute fracture or traumatic subluxation. 2. Multilevel cervical spondylosis. X-ray shoulder: Attestation: I have reviewed the pertinent imaging results. Radiologist's impression: TECHNIQUE: X-ray shoulder right three views COMPARISON: None. FINDINGS: Osseous structures: There is no acute fracture dislocation. The joint spaces are maintained. There is a small radiopaque object along the midshaft of the patient`s right humerus. This may be postsurgical in nature. There are additional radiopaque prognosis, which all appear to be external to the patient on the skin surface. Soft tissues: No asymmetric soft tissue swelling. IMPRESSION: No acute fracture or dislocation. There is a small radiopaque object along the midshaft of the patient`s right humerus, which may be postsurgical in nature. Correlation with the patient`s prior surgical history is recommended. Additionally, there are multiple radiopaque buttons overlying the patient`s right shoulder, which are likely external to the patient on the skin surface. Correlation with physical examination is recommended. ECG Data Attestation: I personally reviewed and interpreted this ECG as follows: Discharge Plan Discharge Clinical Impression: Closed head injury, Shoulder pain, Acute alcohol intoxication Patient Disposition: Home w/ Parent or Adult Condition: Stable Additional Instructions: Recommend abstaining from alcohol. Any resources exist to help you with this. I recommend you follow-up with your primary care provider to discuss next steps. Keep head clean and dry. Okay to shower like he normally would and gently scrub with warm water and soap. Watch for evidence of infection which includes increased pain of the back of the head, purulent drainage or redness. If this occurs follow-up right away with your doctor or in the emergency department. You sustained a closed head injury today-if you develop vomiting, confusion, or any neurologic deficits then you should return to the emergency room right away. As far as her shoulder pain goes, recommend follow-up with an orthopedic surgeon. Prescriptions: No Action furosemide 40 mg tablet 40 mg PO DAILY carvedilol 6.25 mg tablet PO lisinopril 20 mg tablet 20 mg PO BID fexofenadine 180 mg tablet 180 mg PO DAILY amlodipine 5 mg tablet 2.5 mg PO DAILY potassium chloride 20 mEq tablet,ER particles/crystals 20 meq PO BID methotrexate sodium 2.5 mg tablet 10 mg PO folic acid 1 mg tablet PO hydroxychloroquine 200 mg tablet 200 mg PO BID rosuvastatin 40 mg tablet 40 mg PO DAILY icosapent ethyl 1 gram capsule 2 g PO BID aspirin [Adult Aspirin Regimen] 81 mg tablet,delayed release (DR/EC) 81 mg PO DAILY Follow Up/Referrals: Neil Karimi MD [Referring, Family Practice] Stand Alone [facility]: [facility] Info Instructions
[2025-01-25 14:44] LABS: Lactate* 1.5 mmol/L (0.5-1.9)
[2025-01-25 14:45] LABS: Hematocrit* 33.2 % (37.0-53.0); Hemoglobin* 11.3 gm/dL (13.5-17.5); Immature Granulocytes Abs Auto 0.11 K/uL (0.00-0.30); Immature Granulocytes Pct Auto 1.4 %; Mean Corpuscular HGB Conc 34 gm/dL (32-36); Mean Corpuscular Hemoglobin 38 pg (26-34); Mean Corpuscular Volume 112 fL (80-100); RDW Coefficient of Variation % 19.2 % (11.5-15.5); Red Blood Count* 2.96 m/uL (4.30-5.90); White Blood Count* 7.59 K/uL (4.50-11.00)
[2025-01-25 14:55] LABS: Lymphocytes Absolute Auto 0.90 K/uL (0.90-2.90)
[2025-01-25 14:56] LABS: Slide Review Reflex No
[2025-01-25 15:04] LABS: Albumin* 4.6 g/dL (3.3-5.0); Chloride* 99 mmol/L (96-114)
[2025-01-25 15:05] LABS: Potassium* 3.8 mmol/L (3.6-5.1); Sodium* 139 mmol/L (135-149)
[2025-01-25 15:07] LABS: Blood Urea Nitrogen* 19 mg/dL (7-30); Creatinine* 0.9 mg/dL (0.5-1.5); Est. Creatinine Clearance* 89.47; Estimated Glomerular Filt Rate 99 ml/min
[2025-01-25 15:08] LABS: Alanine Aminotransferase* 47 U/L (4-50); Alkaline Phosphatase* 138 U/L (40-150); Anion Gap 13 mEq/L (7-15); Aspartate Amino Transferase* 71 U/L (12-35); Bilirubin Direct* 0.4 mg/dL (0.0-0.5); Bilirubin Total* 0.8 mg/dL (0.1-1.5); Calcium* 8.9 mg/dL (8.4-10.6); Carbon Dioxide* 27 mmol/L (20-32); Creatine Kinase* 299 U/L (54-186); Ethanol* 0.25 % (0.01-0.03); Glucose* 119 mg/dL (60-115); Total Protein* 7.9 g/dL (6.0-8.3)
[2025-01-25 15:26] LABS: Acetaminophen* < 10.0 ug/mL (10.0-30.0); Salicylate* < 1.0 mg/dL (1.0-10)
== END 2025-01-25 16:02 | disposition home or self-care (01) ==
PROVIDERS: Emergency Provider Family Medicine; PCP Family Medicine
DX: S00.01XA Abrasion of scalp, initial encounter (principal); W00.9XXA Unspecified fall due to ice and snow, initial encounter; M25.511 Pain in right shoulder
CPT/HCPCS: 36415; 70450; 72125; 73030; 80048; 80076; 80143; 80179; 80306; 82077; 82550; 83605; 84484; 85025; 93005; 94761; 99284; 99285; 99291